=== PATIENT | female | born 1950 | race American Indian/Alaskan Native ===

== ENCOUNTER 2020-11-05 08:12 | Day surgery (SDC) | payer MEDICARE ==
[2020-11-05 09:52] LABS: Basophils # (Auto) 0.1 K/mm3 (0.0-0.1); Basophils % (Auto) 2.1 % (0.0-1.8); Eosinophils # (Auto) 0.2 K/mm3 (0.0-0.4); Eosinophils % (Auto) 6.9 % (0.0-4.3); Hematocrit 45.6 % (30.3-42.9); Lymphocytes # (Auto) 1.4 K/mm3 (1.2-5.4); Lymphocytes % (Auto) 42.7 % (13.4-35.0); Mean Corpuscular HGB Conc 33 % (30-34); Mean Corpuscular Volume 81 fl (79-97); Monocytes # (Auto) 0.3 K/mm3 (0.0-0.8); Monocytes % (Auto) 9.3 % (0.0-7.3); Platelet Count 236 K/mm3 (140-440); Red Blood Count 5.63 M/mm3 (3.65-5.03); Red Cell Distribution Width 13.8 % (13.2-15.2)
[2020-11-05 10:02] LABS: Partial Thromboplastin Time 24.7 Sec. (24.2-36.6)
[2020-11-05 10:07] LABS: BUN/Creatinine Ratio 19; Blood Urea Nitrogen 15 mg/dL (7-17); Calcium 9.5 mg/dL (8.4-10.2); Hemolysis Index 8
[2020-11-05 11:03] LABS: INR 0.92 (0.87-1.13)
[2020-11-05] MEDS: fentaNYL 100 MCG/2 ML INJ ONE ×2 (11:32→12:09)
[2020-11-05] MEDS: MIDAZOLAM 2 MG/2 ML INJ ONE ×2 (11:33→12:09)
[2020-11-05] MEDS: VERAPAMIL 5 MG/2 ML INJ ONE ×3 (11:34→12:13)
[2020-11-05] MEDS: HEPARIN 10,000 UNITS/10 ML VIAL ONE ×3 (11:34→12:13)
[2020-11-05] MEDS: LIDOCAINE (2%) 20 MG/1 ML VIAL 20 ML MDV INFILTRATI ONE ×2 (11:34→12:10)
[2020-11-05] MEDS: HEPARIN/NS 5000 UNIT/500ML 1,000 ML IR ONE ×2 (11:35→12:08)
[2020-11-05] MEDS: NITROGLYCERIN SYRINGE 3 ML ONE ×2 (11:36→12:13)
[2020-11-05] MEDS: SODIUM CHLORIDE 0.9% 500 ML 500 ML IV SCH ×2 (11:36→12:08)
[2020-11-05] MEDS ORDERED: HYDROcodone/ACETAMINOPHEN 5-325 MG TAB PO PRN (12:51)
[2020-11-05] MEDS ORDERED: traMADol 50 MG TAB PO PRN (12:51)
--- NOTE | 2020-11-05 12:54 | Discharge Summary ---
Short Stay Discharge Plan Activity: advance as tolerated Weight Bearing Status: Full Weight Bearing Diet: low cholesterol, low salt, diabetic Wound: keep clean and dry Special Instructions: no heavy lifting (3 days) Follow up with: YUN FELICIANO MD [Primary Care Provider] - 7 Days CRISTOPHER STEVENSON MD [Staff Physician] - 7 Days
[2020-11-05] MEDS ORDERED: SODIUM CHLORIDE 0.9% 1000 ML 1,000 ML IV SCH (13:00)
--- NOTE | 2020-11-05 13:08 | Cardiac Catherization Report ---
CARDIAC CATHETERIZATION REPORT REASON FOR PROCEDURE: The patient is a 70-year-old woman with coronary artery disease, status post prior remote 2-vessel coronary stents. She presented with chest pain despite a negative thallium stress test, prompting a recommendation for cardiac catheterization. PROCEDURES: 1. Left heart catheterization. 2. Selective left and right coronary angiography. 3. Left ventricular angiography. 4. Sedation time, start 12:09, end 12:23. I was present for the entire procedure and supervised the moderate sedation protocol. TECHNIQUE: The patient was prepped and draped in a sterile fashion after informed consent. Right radial cath site was prepped and draped after a negative Parker's test. The right radial artery was entered using a Seldinger technique followed by placement of a 6-[place] hydrophilic sheath. Routine radial cocktail was administered via the sheath. Selective left and right coronary angiography was performed using a #3.5 left Sumit and a #4 right Sumit. The right Sumit catheter was used for left ventricular angiography. Catheters were then removed, sheath removed, and hemostasis achieved using a TR band. The patient was returned to the post-procedure unit in stable condition. There were no complications. FINDINGS: HEMODYNAMICS: Left ventricular end-diastolic pressure was 5. The ascending aortic pressure 103/61. There was no significant pressure gradient on pullback across the aortic valve. CORONARY ANGIOGRAPHY: There was an eccentric, 80% stenosis of the ostium of the left main. This lesion was associated with catheter tip pressure damping and unchanged following administration of intracoronary nitroglycerin. The left anterior descending artery contained a long, up to 75% stenosis of its proximal to mid segment, extending from its ostium. A coronary stent was visible in the mid AV groove circumflex artery. There was a long, 99% restenosis at the proximal border of the previously stented segment. The right coronary artery was a large dominant vessel. This vessel contained a stent extending through its proximal and mid segment. This stent contained diffuse severe in-stent restenosis with 80% stenosis of the proximal third and another 80% of the distal third. The remainder of the right coronary artery after the stented segment remained largely free of disease. There was normal left ventricular systolic function with ejection fraction 60%. CONCLUSION: 1. Severe 3-vessel coronary artery disease, including severe ostial left main disease. 2. Normal left ventricular systolic function, ejection fraction 60%. RECOMMENDATION: The patient will be recommended for coronary artery bypass surgery. JOB# [id number] CHICHO/ANGELA
[2020-11-05 18:27] VITALS: BP 120/69
== END 2020-11-05 18:54 | disposition home or self-care (01) ==
LOC: CATHLABREC 08:12
PROVIDERS: ATTEND Internal Medicine Cardiovascular Disease
DX: R07.89 Other chest pain (principal); I25.10 Atherosclerotic heart disease of native coronary artery without angina pectoris; T82.855A Stenosis of coronary artery stent, initial encounter; E78.00 Pure hypercholesterolemia, unspecified; I10 Essential (primary) hypertension; E11.9 Type 2 diabetes mellitus without complications; K21.9 Gastro-esophageal reflux disease without esophagitis; E07.9 Disorder of thyroid, unspecified; D64.9 Anemia, unspecified; Z88.8 Allergy status to other drugs, medicaments and biological substances; Z79.899 Other long term (current) drug therapy; Z79.84 Long term (current) use of oral hypoglycemic drugs; Z79.82 Long term (current) use of aspirin; Z98.890 Other specified postprocedural states; Z95.5 Presence of coronary angioplasty implant and graft; Z90.710 Acquired absence of both cervix and uterus; Z98.51 Tubal ligation status; Z82.49 Family history of ischemic heart disease and other diseases of the circulatory system; Y92.89 Other specified places as the place of occurrence of the external cause; Y83.8 Other surgical procedures as the cause of abnormal reaction of the patient, or of later complication, without mention of misadventure at the time of the procedure
CPT/HCPCS: 36415; 80048; 85025; 85610; 85730; 93005; 93458; 99156; C1894; J1644; J2250; J3010; J7040; Q9967